=== PATIENT | male | born 1955 | race Caucasian/White ===

== ENCOUNTER 2017-04-10 00:47 | Emergency (ER) | payer OTHER ==
[2017-04-10] MEDS ORDERED: OXYCODONE/APAP 5/325 TAB ONE (01:22)
[2017-04-10] MEDS ORDERED: OXYCODONE/APAP 5/325 TAB PO ONE (01:23)
[2017-04-10] MEDS ORDERED: HYDROCOD/APAP 5/325 PREPACK#6 BTL TAKEHOME ONE (02:27)
--- NOTE | 2017-04-10 02:28 | EDPHY ---
H & P Stated Complaint: [place] back [place], mid back pain Time Seen by Provider: 04/10/17 01:16 HPI/ROS: Chief Complaint: Right back pain status post fall HPI: 61-year-old male [place] he fell backwards about 5 steps onto his right back. Patient has a history of a CVA in the past and has a chronic right-sided weakness which is what caused his fall. He did not hit his head. No loss of conscious. He is complaining of persistent pain in his right upper back. No new numbness or weakness. No chest pain. No shortness of breath. No abdominal pain. ROS: 10 point Review of Systems is negative except as noted in the HPI. PMH: CVA, diabetes, cognitive impairment Medications: Amlodipine, atorvastatin, metformin Social History: No smoking, no alcohol, no recreational drug use Family History: non-contributory Physical Exam: Gen: Awake, Alert, No Distress HEENT: Nose: no rhinorrhea Eyes: PERRLA, EOMI Mouth: Moist mucosa Neck: Supple, no JVD Chest: nontender, lungs clear to auscultation Heart: S1, S2 normal, no murmur Abd: Soft, non-tender, no guarding Back: no CVA tenderness, he is abrasions to his right back below his right scapula with some mild tenderness. There is no midline tenderness or step- offs. Breath sounds are equal bilaterally Ext: no edema, non-tender Skin: no rash Neuro: CN II-XII intact, Sensation grossly intact, Strength 5/5 in bilateral upper and lower extremities - Personal History Current Tetanus/Diphtheria Vaccine: Yes Current Tetanus Diphtheria and Acellular Pertussis (TDAP): Yes Tetanus Vaccine Date: 2015 - Medical/Surgical History Hx Asthma: No Hx Chronic Respiratory Disease: No Hx Diabetes: Yes Hx Cardiac Disease: No Hx Renal Disease: No Hx Cirrhosis: No Hx Alcoholism: No Hx HIV/AIDS: No Hx Splenectomy or Spleen Trauma: No Other PMH: CVA, HTN, D.M. - Social History Smoking Status: Never smoked Constitutional: Initial Vital Signs Temperature (C) 36.6 C 04/10/17 00:48 Heart Rate 57 L 04/10/17 00:48 Respiratory Rate 18 04/10/17 00:48 Blood Pressure 151/84 H 04/10/17 00:48 O2 Sat (%) 93 04/10/17 00:48 O2 Delivery Mode Room Air Allergies/Adverse Reactions: No Known Allergies Allergy (Verified 04/10/17 00:51) Home Medications: Medication Instructions Recorded Acetamn/Diphenhydramine 500/25 1 each PO HS PRN 10/07/12 [Tylenol PM (*)] Atorvastatin Calcium [Lipitor 10 10 mg PO DAILY 10/07/12 mg (*)] Pharmacy Completed 10/07/12 10/07/12 amLODIPine BESYLATE/BENAZEPRIL 1 each PO DAILY 10/07/12 [Amlodipine-Benazepril 5-20 mg] metFORMIN SR [Glucophage XR 750 mg 750 mg PO BIDMEAL 10/07/12 (*)] Carvedilol [Coreg (*)] 6.25 mg PO BIDMEAL #0 tab 10/16/12 Docusate Sodium [Colace 100 MG (*)] 100 - 200 mg PO BID PRN #0 cap 10/16/12 Lisinopril [Zestril 10 mg (*)] 10 mg PO BID #0 tab 10/16/12 Pantoprazole Sodium [Protonix 40mg 40 mg PO DAILY #0 tab 10/16/12 (*)] amLODIPine BESYLATE [Norvasc 10 mg 10 mg PO DAILY #0 tab 10/16/12 (*)] hydrALAZINE [Apresoline 20 MG VIAL] 5 mg IVP PRN PRN #0 vial 10/16/12 levETIRAcetam [Keppra 500 mg (*)] 750 mg PO BID@08,20 #60 tab 10/16/12 metFORMIN SR [Glucophage XR 750 mg 750 mg PO DAILY@1700 #0 tab.sr 10/16/12 (*)] Medical Decision Making - Diagnostics Imaging Results: Chest x-ray is negative per my interpretation. Imaging: I viewed and interpreted images myself ED Course/Re-evaluation: 7-year-old male status post fall with abrasions and contusions to his right back. Chest x-ray does not show any evidence of an acute pneumothorax, obvious rib fractures or contusions. Patient's pain is improved with oral analgesia. Will discharge with follow-up with his primary care physician for further evaluation. - Data Points Medications Given: Discontinued Medications Hydrocodone Bitart/Acetaminophen ([place] 5/325mg Prepack#6) 1 btl TAKEHOME EDNOW ONE Stop: 04/10/17 02:28 Last Admin: 04/10/17 02:30 Dose: 1 btl Oxycodone/Acetaminophen (Percocet 5/325) 2 tab PO EDNOW ONE Stop: 04/10/17 01:24 Last Admin: 04/10/17 01:34 Dose: 2 tab Departure - Departure Disposition: Home, Routine, Self-Care Clinical Impression: Contusion, Abrasion Condition: Good Instructions: Hydrocodone/Acetaminophen (By mouth), Abrasion (ED), Rib Contusion (ED) Additional Instructions: Take ibuprofen 600 mg 3 times a day for pain. You may take hydrocodone as needed for pain. Follow up with primary care physician in 2-3 days for re-evaluation. Return emergency department for increasing pain, worsening shortness of breath, fevers, chills, or any other concerns. Referrals: Carlo Gifford MD [Primary Care Provider] - As per Instructions
[2017-04-10 02:47] VITALS: BP 151/75; PULSE 66; RESP 16; TEMP 98.1; O2SAT 95
== END 2017-04-10 02:45 | disposition home or self-care (01) ==
DX: S20.229A Contusion of unspecified back wall of thorax, initial encounter (principal); S20.411A Abrasion of right back wall of thorax, initial encounter; S40.211A Abrasion of right shoulder, initial encounter; E11.9 Type 2 diabetes mellitus without complications; I10 Essential (primary) hypertension; Z86.73 Personal history of transient ischemic attack (TIA), and cerebral infarction without residual deficits; Z79.84 Long term (current) use of oral hypoglycemic drugs; W10.8XXA Fall (on) (from) other stairs and steps, initial encounter